=== PATIENT | female | born 1935 | race American Indian/Alaskan Native ===

== ENCOUNTER 2016-10-19 12:41 | Emergency (ER) | payer MEDICARE ==
--- NOTE | 2016-10-19 13:31 | Emergency Department Report ---
Chief Complaint: Fall Stated Complaint: FELL Time Seen by Provider: 10/19/16 13:26 - HPI History of Present Illness: PT has a hx of Parkinson's. [place] and they did not have wheelchairs. PT ambulates with cane. PT was on escalator and fell backwards @ 0510 this am. PT c/o L arm and back pain. - ROS Review of Systems: + shoulder pain + back pain - loc - Exam Physical Exam: pt ambulatory with cane + post C- spine tenderness + l-spine tenderness MSE screening note: Focused history and physical exam performed. Due to findings the following was ordered: ct, xrs ED Disposition for MSE Condition: Stable
--- NOTE | 2016-10-19 15:01 | Cat Scan Report ---
CT scan of head without contrast: History: Fall. Findings: Ventricles are normal in size and midline in location. No evidence of acute ischemia, hemorrhage or mass. No extra axial fluid collection. Normal brainstem and cerebellum. Normal sinuses and mastoid air cells. Impression: No acute intracranial abnormality.
--- NOTE | 2016-10-19 15:05 | Cat Scan Report ---
CT scan of cervical spine: History: Pain after fall. Findings: The odontoid process and lateral masses appears intact. Again posterior arch of atlas and the occipital condyles appears normal. Normal height of vertebral bodies. Marked decrease in height of C3-C4, C4-C5 and C5-C6. Sclerotic adjacent articular surfaces with evidence of severe cervical spondylosis. Normal prevertebral soft tissue. No evidence of fracture. Impression: No evidence of acute fracture. Severe cervical spondylosis.
--- NOTE | 2016-10-19 15:11 | XRay Report ---
Thoracic spine: Trauma, pain. There is kyphosis of the upper thoracic spine with associated mild anterior wedging of approximately T4 and 5. Mild levoscoliosis and spondylosis. The bones appear generally decreased mineralization. There is good alignment and interspaces are grossly normal. No paraspinous soft tissue widening. Impression: Mild degenerative changes consistent with age. Lumbar spine: Trauma, pain. AP and lateral views demonstrates diffuse mild spondylosis. There is a grade 1 anterior L3 subluxation relative to L4 and a grade 1-2 subluxation of L4 relative to L5. The L4-5 interspace has collapsed and there is sclerosis as well as a subchondral lucency at the superior margin of L5. The bones appear generally decreased in overall mineralization. No other significant findings. Impression: L3-L5 subluxations. These are most likely chronic however without prior examination for comparison accuracy of chronicity is limited. LEFT HUMERUS: Trauma, pain. AP and lateral views of the humerus demonstrate normal mineralization and contours for this patient's age. No destructive changes are noted and the adjacent soft tissues are normal. IMPRESSION: Normal left humerus. LEFT FOREARM: Trauma, pain. AP and lateral views of the forearm demonstrate normal mineralization and contours for this patient's age. No destructive changes are noted and the adjacent soft tissues are normal. IMPRESSION: Normal left forearm.
[2016-10-19] MEDS ORDERED: MOTRIN PO ONE (16:23)
[2016-10-19] MEDS ORDERED: CATAPRES PO ONE (17:07)
--- NOTE | 2016-10-19 17:34 | Cat Scan Report ---
FINAL REPORT EXAM: CT LUMBAR SPINE WO CON HISTORY: spinal tendnerss s/p fall TECHNIQUE: Lumbar spine CT without contrast PRIORS: None. FINDINGS: Vertebral bodies are normal height and alignment There is bony fusion at L4-L5 vertebral bodies where there has been previous laminectomy. Vacuum disc noted at L3-L4 and T11-T12. Multilevel hypertrophic degenerative facet joint changes are present most prominent L2-L3 through L5-S1. No acute fracture is identified. Spinous transverse processes are intact. IMPRESSION: Status post fusion and laminectomy at L5-S1 with bony fusion of vertebral bodies Degenerative disc disease with vacuum disc noted at L3-L4 and T11-T12 Multilevel facet joint arthropathy No acute traumatic abnormality identified
[2016-10-19 18:05] VITALS: BP 134/84
--- NOTE | 2016-10-19 18:26 | Emergency Department Report ---
Entered by MARIA ESTHER LAKE, acting as scribe for ISHAAN CRANE NP. ED Fall HPI - General Chief Complaint: Fall Stated Complaint: FELL Time Seen by Provider: 10/19/16 13:26 Source: patient Mode of arrival: Ambulatory - History of Present Illness Initial Comments: This is a 81 y/o female, nontoxic, well nourished in appearance, no acute signs of distress with a PMHx of diabetes mellitus, HTN, and Parkinson's disease presents with c/o a fall injury that began this morning at 05:10. Patient states she was on the escalator at [facility] this morning, tripped, and she subsequently fell backwards on her friend. Friend states that patient was sliding down the escalator while the escalator was continuing to move upwards. Friend states a bystander stopped patient from sliding down the escalator any further. In the ED, patient c/o left arm pain, left shoulder pain, and back pain , but she denies head injury, LOC, fever, chills, chest pain, SOB, CARLSON or dizziness, bladder or bowel stability, numbness, tingling. Rates pain an 8/10, which she describes as aching in quality. Denies Hx of chronic back pain. Patient is ambulatory with a cane. NKDA. AGUILAR Complaint: fall -: This morning Time: 05:10 Fall From: standing When Fall Occurred: other (9-12 hours CARBONATOR) Fall Witnessed: yes, by family, yes, by bystander Place Fall Occurred: other ([facility]) Loss of Consciousness: none Prolonged Down Time?: unclear Symptoms Prior to Fall: none Location: back Location - Extremities: Left: Shoulder, Arm Severity: severe Severity scale (0 -10): 8 Quality: aching Context: other (fell backwards on an escalator) Associated Symptoms: other (LT arm, LT shoulder, and back pain). denies: headache, neck pain, numbness, weakness, chest paint, shortness of breath, abdominal pain, hematuria, unable to walk, lightheaded, vertigo, confusion - Related Data Previous Rx's Medication Instructions Recorded Last Taken Type Ibuprofen [Motrin 600 MG tab] 600 mg PO Q8H PRN #30 tablet 10/19/16 Unknown Rx Allergies Allergy/AdvReac Type Severity Reaction Status Date / Time No Known Allergies Allergy Verified 10/19/16 13:32 ED Review of Systems Comment: All other systems reviewed and negative Constitutional: denies: chills, fever Eyes: denies: eye pain, eye discharge, vision change ENT: denies: ear pain, throat pain Respiratory: denies: cough, orthopnea, shortness of breath, SOB with exertion, SOB at rest, stridor, wheezing Cardiovascular: denies: chest pain, palpitations Endocrine: no symptoms reported Gastrointestinal: denies: abdominal pain, nausea, vomiting, diarrhea Genitourinary: denies: urgency, dysuria, discharge Musculoskeletal: back pain, arthralgia (left arm pain and left shoulder pain). denies: joint swelling, myalgia Skin: denies: rash, lesions Neurological: denies: headache, weakness, numbness, paresthesias Psychiatric: denies: anxiety, depression Hematological/Lymphatic: denies: easy bleeding, easy bruising ED Past Medical Hx - Past Medical History Previous Medical History?: Yes Hx Hypertension: Yes Hx Diabetes: Yes Additional medical history: Parkinson - Surgical History Past Surgical History?: Yes Additional Surgical History: right knee - Social History Smoking Status: Never Smoker Substance Use Type: None - Medications Home Medications: Home Medications Medication Instructions Recorded Confirmed Last Taken Type Ibuprofen [Motrin 600 MG tab] 600 mg PO Q8H PRN #30 tablet 10/19/16 Unknown Rx ED Physical Exam - General Limitations: No Limitations General appearance: alert, in no apparent distress - Head Head exam: Present: atraumatic, normocephalic - Expanded Head Exam Expanded Head exam: Absent: laceration, abrasion, contusion, hematoma, racoon eyes, schwartz's sign, general tenderness, tenderness of temporal artery, CSF rhinorrhea , CSF otorrhea - Eye Eye exam: Present: normal appearance, PERRL, EOMI. Absent: scleral icterus, conjunctival injection, nystagmus, periorbital swelling, periorbital tenderness Pupils: Present: normal accommodation - ENT ENT exam: Present: normal exam, normal orophraynx, mucous membranes moist, TM's normal bilaterally, normal external ear exam - Neck Neck exam: Present: normal inspection, tenderness (C-spinal tenderness), full ROM. Absent: meningismus, lymphadenopathy, thyromegaly - Expanded Neck Exam Expanded Neck exam: Present: tenderness (C-spine tenderness). Absent: midline deformity , anterior neck swelling, thyroid mass, carotid bruit, tracheal deviation - Respiratory Respiratory exam: Present: normal lung sounds bilaterally. Absent: respiratory distress, wheezes, rales, rhonchi, stridor, chest wall tenderness, accessory muscle use, decreased breath sounds - Cardiovascular Cardiovascular Exam: Present: regular rate, normal rhythm, normal heart sounds. Absent: bradycardia, tachycardia, irregular rhythm, systolic murmur, diastolic murmur, rubs, gallop - GI/Abdominal GI/Abdominal exam: Present: soft, normal bowel sounds. Absent: distended, tenderness, guarding, rebound, rigid - Rectal Rectal exam: Present: deferred - Extremities Exam Extremities exam: Present: full ROM, tenderness (left shoulder tenderness), normal capillary refill. Absent: normal inspection, pedal edema, joint swelling , calf tenderness - Expanded Upper Extremity Exam Left General: Present: normal inspection. Absent: laceration, abrasion, nail injury (#), foreign body, amputation, avulsion Shoulder Exam: Present: full ROM, tenderness. Absent: normal inspection, swelling, abrasion, laceration, ecchymosis, deformity, crepidus, dislocation, erythema, tenderness over AC joint Upper Arm exam: Present: normal inspection, full ROM. Absent: tenderness, swelling, abrasion, laceration, ecchymosis, deformity, crepidus, dislocation, erythema Elbow exam: Present: normal inspection, full ROM. Absent: tenderness, swelling , abrasion, laceration, ecchymosis, deformity, crepidus, dislocation, erythema, effusion, pain w/ pronation/supination, tenderness over radial head Forearm Wrist exam: Present: normal inspection, full ROM. Absent: tenderness, swelling, abrasion, laceration, ecchymosis, deformity, crepidus, dislocation, erythema, tenderness over anatomical snuff box, pain with axial thumb loading Hand Wrist exam: Present: normal inspection, full ROM. Absent: tenderness, swelling, abrasion, laceration, ecchymosis, deformity, crepidus, dislocation, erythema, amputation, nail avulsion, subungual hematoma Neuro motor exam: Present: wrist extension intact, thumb opposition intact, thumb IP flexion intact, thumb adduction intact, fingers 2-5 abduction intact Neurosensory exam: Present: 2-point discrimination, radial nerve intact Vascular: Present: normal capillary refill, radial pulse (2+), brachial pulse, ulnar pulse. Absent: vascular compromise, Pallo - Back Exam Back exam: Present: normal inspection, full ROM, tenderness (Cervical and lumber spinal tenderness), vertebral tenderness (cervical and lumbar). Absent: CVA tenderness (R), CVA tenderness (L), muscle spasm, paraspinal tenderness - Expanded Back Exam Expanded Back exam: Absent: saddle anesthesia Back exam: Negative Straight Leg Raising: Left, Right - Neurological Exam Neurological exam: Present: alert, oriented X3, CN II-XII intact, normal gait ( patient is ambulatory with a cane), reflexes normal. Absent: motor sensory deficit - Psychiatric Psychiatric exam: Present: normal affect, normal mood - Skin Skin exam: Present: warm, dry, intact. Absent: rash, cyanosis, erythema, abrasion, ecchymosis ED Course Vital Signs 10/19/16 13:27 Temperature 98.3 F Pulse Rate 96 H Respiratory 16 Rate Blood Pressure 131/90 O2 Sat by Pulse 98 Oximetry - Reevaluation(s) Reevaluation #1: 10/19/16 16:34 Patient is speaking in full sentences with no signs of distress noted. - Consultations Consultation #1: 10/19/16 16:34 Dr. Du was consulted and examined patient. Agrees to the plan of care in the ED. ED Medical Decision Making - Medical Decision Making Ed course: this is a 81-year-old female that presents with low back strain, cervical strain, and contusion to the left knee 1- patient was examined myself. Patient received x-rays and CT scans has been obtained with negative findings of any fractures or abnormalities. Patient was notified of xray and ct scan findings with no further questions noted by the patient. 2- patient was treated with ibuprofen and at discharge. 3- patient was instructed to follow-up with her primary care doctor in 3-5 days or if symptoms worsen or continue return to emergency room as soon as possible. 4- At time time of discharge, the patient does not seem toxic or ill in appearance. No acute signs of distress noted. Patient agrees to discharge treatment plan of care. No further questions noted by the patient. ED Disposition Clinical Impression: Contusion Qualifiers: Encounter type: initial encounter Contusion area: shoulder Laterality: left Qualified Code(s): S40.012A - Contusion of left shoulder, initial encounter Low back strain Qualifiers: Encounter type: initial encounter Qualified Code(s): S39.012A - Strain of muscle, fascia and tendon of lower back, initial encounter Cervical strain Qualifiers: Encounter type: initial encounter Qualified Code(s): S16.1XXA - Strain of muscle, fascia and tendon at neck level, initial encounter Disposition: TO HOME OR SELFCARE Is pt being admited?: No Does the pt Need Aspirin: No Condition: Stable Instructions: Contusion in Adults (ED), Shoulder Sprain (ED), Low Back Strain ( ED), Cervical Spine Strain (ED), Ibuprofen (By mouth) Additional Instructions: follow-up with your primary care doctor in 3-5 days or if symptoms worsen or continue return to emergency room as soon as possible. Taken ibuprofen as prescribed for pain as needed Prescriptions: Ibuprofen [Motrin 600 MG tab] 600 mg PO Q8H PRN #30 tablet PRN Reason: Pain Referrals: PRIMARY CARE, [Primary Care Provider] - 3-5 Days ABDIRASHID PATEL MD [Staff Physician] - 3-5 Days [facility] [Outside] - 3-5 Days [facility] [Outside] - 3-5 Days This documentation as recorded by the JAYA hargrove JASMINE,accurately reflects the service I personally performed and the decisions made by ,ISHAAN CRANE, ALIS[place].
== END 2016-10-19 18:36 | disposition home or self-care (01) ==
LOC: ED 12:41
DX: S39.012A Strain of muscle, fascia and tendon of lower back, initial encounter (principal); S16.1XXA Strain of muscle, fascia and tendon at neck level, initial encounter; S40.012A Contusion of left shoulder, initial encounter; I10 Essential (primary) hypertension; E11.9 Type 2 diabetes mellitus without complications; G20 Parkinson's disease; W10.0XXA Fall (on)(from) escalator, initial encounter; Y93.89 Activity, other specified; Y99.8 Other external cause status; Y92.89 Other specified places as the place of occurrence of the external cause
CPT/HCPCS: 70450; 72070; 72100; 72125; 72131